=== PATIENT | male | born 1990 | race Caucasian/White ===

== ENCOUNTER 2017-02-28 07:41 | Emergency (ER) | payer SELFPAY ==
[~2017-02-28] VITALS: Ht 185.4 cm; Wt 129.3 kg
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
[2017-02-28] MEDS ORDERED: TETANUS,DIPTH,PERTUSS P/F (BOOSTRIX) 0.5 ML VIAL IM ONE (08:15)
[2017-02-28] MEDS ORDERED: AMOX-358 PO (08:17)
[2017-02-28 08:33] VITALS: BP 132/72
== END 2017-02-28 08:33 | disposition home or self-care (01) ==
LOC: EDUNIT# 07:41 → ER 07:44
DX: S01.511A Laceration without foreign body of lip, initial encounter (principal); F90.9 Attention-deficit hyperactivity disorder, unspecified type; F17.210 Nicotine dependence, cigarettes, uncomplicated; Y04.0XXA Assault by unarmed brawl or fight, initial encounter
CPT/HCPCS: 90471; 90715; 99284